=== PATIENT | male | born 1990 | race Caucasian/White ===

== ENCOUNTER 2021-06-08 16:44 | Emergency (ER) | payer MEDICAID ==
[~2021-06-08] VITALS: Ht 160 cm; Wt 61.0 kg
[2021-06-08 17:01] VITALS: BP 132/97
[2021-06-08] MEDS ORDERED: TETANUS, DIPHTHERIA, PERTUSSIS VAC/PF 0.5ML (>10YR OLD) IM ONE (17:30)
[2021-06-08] MEDS ORDERED: AMOX-424 MT (17:30)
== END 2021-06-08 18:12 | disposition home or self-care (01) ==
LOC: ER 16:44
DX: S60.410A Abrasion of right index finger, initial encounter (principal); W55.01XA Bitten by cat, initial encounter; Y93.89 Activity, other specified; Y92.89 Other specified places as the place of occurrence of the external cause
CPT/HCPCS: 90471; 90715; 99283